=== PATIENT | male | born 1965 | race Caucasian/White ===

== ENCOUNTER 2019-12-26 07:03 | Outpatient (CLI) | payer BC, OTHER ==
[2019-12-26 18:10] LABS: #Eosinphils 0.1 thou/uL (0.0-0.7); #Lymphocytes 1.4 thou/uL (1.20-3.40); #Monocytes 0.5 thou/uL (0.11-0.59); #Neutrophils 4.5 thou/uL (1.40-6.50); %Basophils 0.5 % (0.0-1.0); %Eosinophils 1.7 % (0.0-10.0); %Lymphocytes 21.5 % (21.0-51.0); %Monocytes 7.1 % (0.0-10.0); %Neutrophils 69.2 % (42.0-75.0); Hemoglobin 13.6 g/dL (14.0-18.0); Mean Corpuscular HGB CONC 32.8 g/dL (32.0-36.0); Mean Corpuscular Hemoglobin 31.8 pg (27.0-31.0); Mean Corpuscular Volume 96.9 fL (78.0-98.0); Mean Platelet Volume 8.9 fL (7.4-10.4); Platelet Count 232 thou/uL (130-400); RBC Distribution Width 11.5 % (11.5-14.5); Red Blood Cell (RBC) Count 4.27 mill/uL (4.70-6.10); White Blood Cell (WBC) Count 6.5 thou/uL (4.8-10.8)
[2019-12-27 00:01] LABS: Anion Gap 11 mmol/L (10-20); BUN (Urea Nitrogen) 11 mg/dL (8.4-25.7); Calc. Creatinine Clearance 0 mL/min (70-130); Carbon Dioxide 30 mmol/L (22-29); Chloride 104 mmol/L (98-107); Estimated GFR-MDRD Greater than 90; Glucose 103 mg/dL (70-105); Potassium 3.8 mmol/L (3.5-5.1); Sodium 141 mmol/L (136-145)
[2019-12-27 00:12] LABS: Calcium 8.9 mg/dL (7.8-10.44)
--- NOTE | 2019-12-27 10:31 | EKG ---
Test Reason : PREOP Blood Pressure : / mmHG Vent. Rate : 062 BPM Atrial Rate : 062 BPM P-R Int : 142 ms QRS Dur : 086 ms QT Int : 418 ms P-R-T Axes : 062 -02 026 degrees QTc Int : 424 ms Normal sinus rhythm Low voltage QRS Borderline ECG Confirmed by MACARENA ROMERO M.D. ([id number]) on 12/27/2019 10:30:38 AM Referred By: LUIZA Confirmed By:MACARENA ROMERO M.D.
[2019-12-27 13:01] LABS: SARS-CoV-2 MS2 Positive; SARS-CoV-2 N Gene Negative; SARS-CoV-2 S Gene Negative; SARS-CoV-2 by NAA Not Detected (NotDetected); SARS-CoV-2 orf1ab Negative
== END 2019-12-26 07:04 | disposition home or self-care (01) ==
LOC: LABBT 07:03
PROVIDERS: ATTEND Specialist
DX: Z01.818 Encounter for other preprocedural examination (principal); K42.9 Umbilical hernia without obstruction or gangrene; Z20.828 Contact with and (suspected) exposure to other viral communicable diseases
CPT/HCPCS: 80048; 85025; 87635; 93005; 93010; U0003

== ENCOUNTER 2019-12-29 05:52 | Day surgery (SDC) | payer BC ==
[2019-12-28 09:38] VITALS: BMI 27.3
[2019-12-29] MEDS ORDERED: Acetaminophen 500 MG TAB ONE (06:04)
[2019-12-29] MEDS ORDERED: Ketorolac Tromethamine 30 MG/ML VIAL ONE ×2 (06:04→11:02)
[2019-12-29] MEDS ORDERED: Fentanyl 100 MCG/2 ML VIAL ONE (06:20)
[2019-12-29] MEDS ORDERED: Bupivacaine 0.25% HCL 30 ML VIAL ONE (06:34)
[2019-12-29] MEDS ORDERED: Lidocaine 1% w/Epinephrine 1:100K 20 ML VIAL ONE (06:34)
[2019-12-29] MEDS ORDERED: Midazolam HCl 2 mg/2 ml Vial ONE (07:20)
--- NOTE | 2019-12-29 09:21 | OP ---
DATE OF PROCEDURE: 12/29/2019 PREOPERATIVE DIAGNOSIS: Umbilical hernia. POSTOPERATIVE DIAGNOSIS: Umbilical hernia. PROCEDURE PERFORMED: Umbilical hernia repair with mesh. ANESTHESIA: General endotracheal. INDICATIONS: The patient is a 54-year-old white male. He has a recent history of traumatic brain injury. He presents with an umbilical hernia that is only partially reducible. He was taken to the operating room at this time for repair. DESCRIPTION OF OPERATION: Informed consent was obtained. The patient was taken to the operating room, where general anesthesia was obtained with the patient in supine position. Abdomen was prepped with ChloraPrep and draped in sterile fashion. Local anesthetic was infiltrated using a combination of 1% lidocaine with epinephrine and 0.25% Marcaine. A curvilinear infraumbilical incision was created through which dissection was carried down to the fascia. The umbilicus was dissected off the underlying fascia and the hernia sac and reflected superiorly. The hernia edges were dissected with electrocautery. All herniated material was preperitoneal fat. This was all reduced into the subfascial space. Digital preperitoneal dissection was carried out. 4.3 cm Ventralex mesh patch was obtained and placed in the preperitoneal space. The tails were secured to fascia superiorly and inferiorly with single interrupted sutures of 0 Prolene. The lateral aspects were closed with additional sutures of 0 Prolene, obtaining bites of the anterior leaflet of the mesh. The umbilicus was secured down to the fascia with 2 interrupted sutures of 3-0 Vicryl. The wound was closed in layers with 3-0 and 4-0 Monocryl. Additional local anesthetic was infiltrated during closure. Dermabond was placed externally. A compression dressing was effected using cotton balls and a Dermabond. There were no complications. Blood loss was negligible. The patient tolerated the procedure well and was taken to recovery room in stable condition. Job ID: [id number]
[2019-12-29] MEDS ORDERED: Ondansetron PF 4 MG/2 ML Vial ONE (11:02)
[2019-12-29] MEDS ORDERED: Glycopyrrolate 0.2 MG/ML 5 ML SYRINGE ONE (11:02)
[2019-12-29] MEDS ORDERED: Lidocaine 1% PF 5 ML VIAL ONE (11:02)
[2019-12-29] MEDS ORDERED: PROPOFOL 200 MG/20 ML VIAL ONE (11:02)
[2019-12-29] MEDS ORDERED: Rocuronium Bromide 10 MG/ML (10ML VIAL) ONE (11:02)
== END 2019-12-29 10:40 | disposition home or self-care (01) ==
LOC: SDC 05:52
PROVIDERS: ATTEND Specialist
PROC: 0WUF0JZ Supplement Abdominal Wall with Synthetic Substitute, Open Approach (ICD-10-PCS; principal; 2019-12-29)
DX: K42.0 Umbilical hernia with obstruction, without gangrene (principal); I69.354 Hemiplegia and hemiparesis following cerebral infarction affecting left non-dominant side; N40.0 Benign prostatic hyperplasia without lower urinary tract symptoms; Z79.899 Other long term (current) drug therapy; Z88.0 Allergy status to penicillin
CPT/HCPCS: J0690; J1885; J2250; J2405; J2704; J3010; S0020